=== PATIENT | male | born 1950 | race African-American/Black ===

== ENCOUNTER 2019-06-10 16:39 | Emergency (ER) | payer OTHER ==
[2019-06-10 17:07] VITALS: BP 150/95; PULSE 72; TEMP 97.7; BMI 25.1
--- NOTE | 2019-06-10 17:36 | PDOC ---
History of Present Illness - General Chief Complaint: Edema Stated Complaint: EDEMA Time Seen by Provider: 06/10/19 17:10 - History of Present Illness Initial Comments: 06/10/19 17:27 68 M with h/o HTN, ETOH abuse, presenting to ED with BLE swelling. Pt states that he has had about 4-5 days of BLE swelling. Denies any pain. Denies any redness or fevers. Denies CP/SOB. Denies recent travel/immobilization. Pt states he has had intermittent swelling of his legs that comes and goes. It usually resolves with elevation of his legs, but this time it has not. Pt also reports swelling of his L hand that is chronic and unchanged. Pt is only on amlodipine for HTN. No other meds. Is currently admitted to [facility] for ETOH detox. Past History - Past Medical History Allergies/Adverse Reactions: Allergies Allergy/AdvReac Type Severity Reaction Status Date / Time Penicillins Allergy Severe Difficulty Verified 06/10/19 17:05 Breathing Home Medications: Ambulatory Orders Amlodipine Besylate [Norvasc -] 10 mg PO DAILY 06/10/19 Anemia: No Asthma: No Cancer: No Cardiac Disorders: No CVA: No COPD: No CHF: No Dementia: No Diabetes: No GI Disorders: No Disorders: No HTN: Yes Hypercholesterolemia: No Liver Disease: No Seizures: Yes (last seizure in ) Thyroid Disease: No - Surgical History Abdominal Surgery: No Appendectomy: No Cardiac Surgery: No Cholecystectomy: No Neurologic Surgery: No Orthopedic Surgery: Yes - Psycho Social/Smoking Cessation Hx Smoking History: Never smoked Have you smoked in the past 12 months: No Information on smoking cessation initiated: No Hx Alcohol Use: No Drug/Substance Use Hx: No Substance Use Type: Alcohol, Heroin Review of Systems - Review of Systems Comments:: 06/10/19 17:36 "GENERAL/CONSTITUTIONAL: No fever or chills. No weakness. HEAD, EYES, EARS, NOSE AND THROAT: No change in vision. No ear pain or discharge. No sore throat. CARDIOVASCULAR: No chest pain, no shortness of breath, no loss of consciousness RESPIRATORY: No cough, wheezing, or hemoptysis. GASTROINTESTINAL: No nausea, vomiting, diarrhea or constipation. GENITOURINARY: No dysuria, frequency, or change in urination. MUSCULOSKELETAL: + BLE swelling, No neck or back pain. SKIN: No rash NEUROLOGIC: No vertigo, no change in strength/sensation. ENDOCRINE: No increased thirst. No abnormal weight change. HEMATOLOGIC/LYMPHATIC: No anemia, easy bleeding, or history of blood clots. ALLERGIC/IMMUNOLOGIC: No hives or skin allergy. *Physical Exam - Vital Signs Last Vital Signs Temp Pulse Resp BP Pulse Ox 97.7 F 72 16 150/95 92 L 06/10/19 16:40 06/10/19 16:40 06/10/19 16:40 06/10/19 16:40 06/10/19 16:40 - Physical Exam Comments: 06/10/19 17:37 "GENERAL: Awake, alert, and fully oriented, in no acute distress. HEAD: No signs of trauma EYES: PERRLA, EOMI, sclera anicteric, conjunctiva clear ENT: Auricles normal inspection, hearing grossly normal, nares patent, oropharynx clear without exudates. Moist mucosa NECK: Nontender, no stepoffs, Normal ROM, supple, no lymphadenopathy, JVD, or masses LUNGS: Breath sounds equal, clear to auscultation bilaterally. No wheezes, and no crackles HEART: Regular rate and rhythm, normal S1 and S2, no murmurs, rubs or gallops ABDOMEN: Soft, nontender, normoactive bowel sounds. No guarding, no rebound. No masses EXTREMITIES: + 1 BLE pitting edema, No clubbing or cyanosis. No cords, erythema , or tenderness NEUROLOGICAL: Cranial nerves II through XII intact. 5/5 strength and sensation in all extremities, Normal speech, normal gait, normal cerebellar function SKIN: Warm, Dry, normal turgor, no rashes or lesions noted ED Treatment Course - LABORATORY CBC & Chemistry Diagram: 06/10/19 18:23 06/10/19 18:23 - RADIOLOGY Radiology Studies Ordered: Category Date Time Status CHEST X-RAY PORTABLE* [RAD] Stat Radiology 06/10/19 17:20 Ordered Medical Decision Making - Medical Decision Making 06/10/19 17:37 68 M with BLE edema. Vitals notable for mild hypoxia 92%, but pt without any SOB or chest pain, no h/o CHF. Will evaluate for pulmonary edema with CXR. DVT unlikely as edema is symmetric and pt has no DVT risk factors. Will check liver and renal function with labs. - Labs, BNP - EKG - CXR Pt signed out to oncoming attending at 7PM, pending labs and re-evaluation Discharge - Discharge Information Problems reviewed: Yes Clinical Impression/Diagnosis: Foot swelling Condition: Stable Disposition: HOME - Follow up/Referral - Patient Discharge Instructions Patient Printed Discharge Instructions: DI for Peripheral Edema -- Bilateral Additional Instructions: Thank you for coming in to the ER today If you notice worsening or persistent swelling, please return to the ER Return to the ER for any other concerns or complaints - Post Discharge Activity
[2019-06-10 18:48] LABS: BASO % 1.7 % (0-2.0); EOS % 5.4 % (0-4.5); HEMOGLOBIN 12.8 GM/dL (11.7-16.9); LYMPH % 56.5 % (8-40); MCH 34.4 pg (25.7-33.7); MCHC 33.6 g/dl (32.0-35.9); MEAN CELL VOLUME 102.3 fl (80-96); MONO % 9.3 % (3.8-10.2); NEUT % 27.1 % (42.8-82.8); RBC 3.72 M/mm3 (4.00-5.60); RDW 13.2 % (11.9-15.9); WHITE BLOOD COUNT 4.6 K/mm3 (4.0-10.0)
[2019-06-10 19:17] LABS: ALBUMIN 3.6 g/dl (3.4-5.0); BILIRUBIN,TOTAL 0.5 mg/dL (0.2-1); BLOOD UREA NITROGEN 18.3 mg/dL (7-18); CALCIUM 8.5 mg/dL (8.5-10.1); CREATININE 1.3 mg/dL (0.55-1.3); N-TERMINAL BNP 80.2 pg/ml (5-125); POTASSIUM 4.3 mmol/L (3.5-5.1); TOT PROT 8.1 g/dl (6.4-8.2)
[2019-06-10 19:21] LABS: MEAN PLT VOLUME 9.5 fl (7.5-11.1)
[2019-06-10 19:22] LABS: PLATELET COUNT 168 K/MM3 (134-434)
--- NOTE | 2019-06-10 20:29 | PDOC ---
*Physical Exam - Vital Signs Last Vital Signs Temp Pulse Resp BP Pulse Ox 97.7 F 72 16 150/95 92 L 06/10/19 16:40 06/10/19 16:40 06/10/19 16:40 06/10/19 16:40 06/10/19 16:40 ED Treatment Course - LABORATORY CBC & Chemistry Diagram: 06/10/19 18:23 06/10/19 18:23 - ADDITIONAL ORDERS Additional order review: Laboratory Results 06/10/19 06/10/19 18:23 18:23 Sodium 138 Potassium 4.3 Chloride 105 Carbon Dioxide 25 Anion Gap 7 L BUN 18.3 H Creatinine 1.3 Est GFR (CKD-EPI)AfAm 64.98 Est GFR (CKD-EPI)NonAf 56.06 Random Glucose 63 L Calcium 8.5 Total Bilirubin 0.5 AST 113 H ALT 59 Alkaline Phosphatase 87 Creatine Kinase 267 Creatine Kinase Index 1.0 CK-MB (CK-2) 2.9 Troponin I < 0.02 B-Natriuretic Peptide 80.2 Total Protein 8.1 Albumin 3.6 06/10/19 18:23 RBC 3.72 L MCV 102.3 H MCHC 33.6 RDW 13.2 MPV 9.5 Neutrophils % 27.1 L Lymphocytes % 56.5 H Monocytes % 9.3 Eosinophils % 5.4 H Basophils % 1.7 Medical Decision Making - Medical Decision Making 06/10/19 20:23 I received this patient on sign out He is a 68 yo M who was sent to the ER from [facility] due to swelling of his feet Plan is to follow up labs Pt reports that he has had swelling of his feet intermittently for some time which improves with leg elevation Plan is not for duplex 06/10/19 20:24 Laboratory Tests 06/10/19 06/10/19 06/10/19 18:23 18:23 18:23 WBC 4.6 Hgb 12.8 Hct 38.0 Plt Count 168 BUN 18.3 H Creatinine 1.3 CK-MB (CK-2) 2.9 Troponin I < 0.02 B-Natriuretic Peptide 80.2 EKG: POOR BASELINE NSR rate of 70 bpm, axis nml, intervals abnormal - QTc: 533ms (prolonged), NJ: 176ms, QRS:84ms, no st elevation or depression, t waves upright Will transfer to [facility] Discharge - Discharge Information Problems reviewed: Yes Clinical Impression/Diagnosis: Foot swelling Condition: Stable Disposition: HOME - Admission No - Additional Discharge Information Prescription Drug Monitoring Program (I-STOP) results: I-STOP not reviewed - Follow up/Referral - Patient Discharge Instructions Patient Printed Discharge Instructions: DI for Peripheral Edema -- Bilateral Additional Instructions: Thank you for coming in to the ER today If you notice worsening or persistent swelling, please return to the ER Return to the ER for any other concerns or complaints - Post Discharge Activity
--- NOTE | 2019-06-11 14:58 | EKG ---
Test Reason : Blood Pressure : / mmHG Vent. Rate : 070 BPM Atrial Rate : 070 BPM P-R Int : 176 ms QRS Dur : 084 ms QT Int : 494 ms P-R-T Axes : 077 054 076 degrees QTc Int : 533 ms POOR DATA QUALITY, INTERPRETATION MAY BE ADVERSELY AFFECTED NORMAL SINUS RHYTHM SEPTAL INFARCT , AGE UNDETERMINED ABNORMAL ECG NO PREVIOUS ECGS AVAILABLE Confirmed by Kezia Garza ([id number]) on 06/11/2019 2:58:13 PM Referred By: Confirmed By:Kezia Garza
== END 2019-06-10 23:12 | disposition home or self-care (01) ==
LOC: JER 16:39
DX: R60.0 Localized edema (principal); I10 Essential (primary) hypertension; F10.10 Alcohol abuse, uncomplicated; Z88.0 Allergy status to penicillin
CPT/HCPCS: 36415; 71045-TC-FY; 80053; 82550; 82553; 83880; 84484; 85025; 93005; 93010; 99284-25

== ENCOUNTER 2019-06-10 23:32 | Inpatient (IN) | payer OTHER ==
[2019-06-10 12:01] VITALS: BMI 24.7
--- NOTE | 2019-06-10 14:00 | HP ---
CIWA Score Nausea/Vomitin-No Nausea/No Vomiting Muscle Tremors: 1-None Visible, but [place] Anxiety: 0-No Anxiety, at Ease Agitation: 0-Normal Activity Paroxysmal Sweats: No Perspiration Orientation: 0-Oriented Tacttile Disturbances: 0-None Auditory Disturbances: 0-None Visual Disturbances: 0-None Headache: 0-None Present CIWA-Ar Total Score: 1 - Admission Criteria OASAS Guidelines: Admission for Medically Managed Detox: Requires at least one of the followin. CIWA greater than 12 2. Seizures within the past 24 hours 3. Delirium tremens within the past 24 hours 4. Hallucinations within the past 24 hours 5. Acute intervention needed for co occurring medical disorder 6. Acute intervention needed for co occurring psychiatric disorder 7. Severe withdrawal that cannot be handled at a lower level of care (continued vomiting, continued diarrhea, abnormal vital signs) requiring intravenous medication and/or fluids 8. Admission ROS [facility] Chief Complaint: Wilmar Gomez is a 68 year old male presenting for alcohol detox. Allergies/Adverse Reactions: Allergies Allergy/AdvReac Type Severity Reaction Status Date / Time Penicillins Allergy Severe Difficulty Verified 06/10/19 17:05 Breathing History of Present Illness: Wilmar Gomez is a 68 year old male presenting for alcohol detox. Alcohol: 2 six packs and 6 nips. Daily drinker. Last drink was before arriving at this facility. States that has been drinking since his teens. has had a seizure prior (last seizure was in the ). Denies blackouts. Denies falls and head hits. Longest period of sobriety 6 months. Withdrawal symptoms: tremors , anxiety, vomiting. Referred by [facility]. took a benzo at home (?Librium), took off the street. 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 Has been to detox in the past. [facility] has been to rehab in the past. Plans after detox: wants some sort of rehab. Medical History: HTN, seizures, Hep C (treated), arthritis Surgical History: R knee replacement, 2 L hip replacements (revision) Psychiatric History: denies Smoking: former smoker, less than a pack per day Social: lives in a apartment, lives alone. Visits his sister. 2 children, keeps in contact with family. Utox: MTD, BZO CMAERON: 0.218 Will be sent to [facility] for further evaluation of leg edema and once medically cleared will return for alcohol detox. Spoke with Dr. Pickard for report. Exam Limitations: No Limitations - Ebola screening Have you traveled outside of the country in the last 21 days: No Have you had contact with anyone from an Ebola affected area: No Do you have a fever: No - Review of Systems Constitutional: No Symptoms Reported EENT: reports: No Symptoms Reported Respiratory: reports: No Symptoms reported Cardiac: reports: No Symptoms Reported GI: reports: No Symptoms Reported : reports: No Symptoms Reported Musculoskeletal: reports: Back Pain Integumentary: reports: No Symptoms Reported Neuro: reports: No Symptoms reported Endocrine: reports: No Symptoms Reported Hematology: reports: No Symptoms Reported Psychiatric: reports: Orientated x3 Patient History - Patient Medical History Hx Anemia: No Hx Asthma: No Hx Chronic Obstructive Pulmonary Disease (COPD): No Hx Cancer: No Hx Cardiac Disorders: No Hx Congestive Heart Failure: No Hx Hypertension: Yes Hx Hypercholesterolemia: No Hx Pacemaker: No HX Cerebrovascular Accident: No Hx Seizures: Yes (last seizure in ) Hx Dementia: No Hx Diabetes: No Hx Gastrointestinal Disorders: No Hx Liver Disease: No Hx Genitourinary Disorders: No Hx Sexually Transmitted Disorders: No Hx Renal Disease (ESRD): No Hx Thyroid Disease: No Hx Human Immunodeficiency Virus (HIV): No Hx Hepatitis C: Yes (treated) Hx Depression: No Hx Suicide Attempt: No Hx Bipolar Disorder: No Hx Schizophrenia: No - Patient Surgical History Hx Neurologic Surgery: No Hx Cataract Extraction: No Hx Cardiac Surgery: No Hx Breast Surgery: No Hx Breast Biopsy: No Hx Abdominal Surgery: No Hx Appendectomy: No Hx Cholecystectomy: No Hx Genitourinary Surgery: No Hx Section: No Hx Orthopedic Surgery: Yes - PPD History Previous Implant?: No PPD to be Administered?: Yes - Smoking Cessation Smoking history: Former smoker Have you smoked in the past 12 months: No Initiated information on smoking cessation: No - Substance & Tx. History Hx Alcohol Use: Yes Hx Substance Use: Yes Substance Use Type: Alcohol, Heroin - Substances abused Alcohol Substance route: Oral Frequency: Daily Amount used: (2 ) 6 pk of beer & 5 nips of liquor Age of first use: 13 Date of last use: 06/10/19 Admission Physical Exam [facility] - Vital Signs Vital Signs: Vital Signs - 24 hr 06/10/19 11:43 Temperature 98.9 F Pulse Rate 80 Respiratory 18 Rate Blood Pressure 161/97 - Physical General Appearance: Yes: No Apparent Distress, Disheveled HEENTM: Yes: EOMI, Normocephalic, Normal Voice, BIANKA, Pharynx Normal Respiratory: Yes: Chest Non-Tender, Lungs Clear, Normal Breath Sounds, No Respiratory Distress, No Accessory Muscle Use Neck: Yes: No masses,lesions,Nodules, Trachea in good position Breast: Yes: Breast Exam Deferred Cardiology: Yes: Regular Rhythm, Regular Rate, S1, S2 Abdominal: Yes: Normal Bowel Sounds, Non Tender, Flat, Soft Genitourinary: Yes: Within Normal Limits Back: Yes: Normal Inspection Musculoskeletal: Yes: full range of Motion, Back pain, Other (surgical scar on R knee old scars on L AC, from former IVDU) Extremities: Yes: Normal Capillary Refill, Normal Inspection, Normal Range of Motion, Non-Tender Neurological: Yes: cytogeneticist II-XII NML intact, Fully Oriented, Alert, Motor Strength 5/5, Normal Mood/Affect Integumentary: Yes: Normal Color, Dry, Warm, Pitting Edema (2+ edema in legs, up to the knees), Other - Diagnostic (1) HTN (hypertension) Current Visit: Yes Status: Acute (2) Alcohol abuse Current Visit: Yes Status: Acute (3) Methadone maintenance therapy patient Current Visit: Yes Status: Acute (4) History of seizures Current Visit: Yes Status: Acute (5) Hepatitis C Current Visit: Yes Status: Acute Cleared for Admission S - Detox or Rehab [facility] Level of Care: Medically Supervised Detox Regimen/Protocol: Librium Breathalyzer - Breathalyzer Breathalyzer: 0.218 Urine Drug Screen - Test Device Lot number: [id number] Expiration date: 01/28/21 - Control Is test valid?: Yes - Results Drug screen NEGATIVE: No Urine drug screen results: MTD-Methadone, BZO-Benzodiazepines Inpatient Rehab Admission - Rehab Decision to Admit Inpatient rehab admission?: No
--- NOTE | 2019-06-10 14:29 | PN ---
"Teaching Attending Note Name of Resident: Gaston Zhao ATTENDING PHYSICIAN STATEMENT I saw and evaluated the patient. I reviewed the resident's note and discussed the case with the resident. I agree with the resident's findings and plan as documented. SUBJECTIVE: 69 year old male presenting for alcohol detox , latest use today , denies blackouts , no falls while intoxicated , longest sobriety 6 months , referred by [facility] since 1990 , current daily dose 130 mg THB for the weekend . Pt reports 2 - week LE swelling . Alcohol: 2 six packs and 6 nips / day , first use in teens , w/d seizure . Medical History: HTN, seizures, Hep C (treated) Surgical History: R knee TKR 2 years ago , L hip THR x 2 ( revision / nail displacement ) Psychiatric History: denies Smoking: former smoker, less than a pack per day Social: lives in a apartment, lives alone. Utox: MTD, BZO ( reports illicit librium use ) CAMERON: 0.218 OBJECTIVE: wnwd , mild UE tremors R hand Ivth and Vth fingers F deformity ,reports remote injury R knee tkr scar c/d i YVETTE LE board-like edema to knees , indurated w/ hyperpigmentation and stasis dermatitis ABd : soft , distended , + hepatomegaly , no fluid wave CV RRR S1 S2 3/6 murmur R 2nd IC Resp : lungs CTA B/L , decreased BS Search Terms: ene register, 1950 Search Date: 06/10/2019 02:30:49 PM This report was requested by: Tiana Dexter | Reference #: [id number] There are no results for the search terms that you entered. Vital Signs - 24 hr 06/10/19 11:43 Temperature 98.9 F Pulse Rate 80 Respiratory 18 Rate Blood Pressure 161/97 ASSESSMENT AND PLAN: Alcohol dependence w/ intoxication LE pedal edema new onset - sent for eval at ED"
--- NOTE | 2019-06-10 23:37 | PN ---
[facility] Progress Note Note: Returned from ED. Discharge diagnosis fro ED: Peripheral Edema. [facility]HS H&P reviewed. Alert and oriented. Lungs CTA. Current CAMERON: 0.086 Hx: Alcohol use disorder. On methadone maintenance. PMHx: HTN CIWA Score Nausea/Vomitin-No Nausea/No Vomiting Muscle Tremors: 7-Gross tremors hands and body Anxiety: 1-No Anxiety, at Ease Agitation: 1-Normal Activity Paroxysmal Sweats: 3- Increased facial moisture CIWA-Ar Total Score: 12 Admit to detox. Orders written.
[2019-06-10] MEDS ORDERED: MAG HYDROX/AL HYDROX/SIMETH 30 ML UNIT-DOSE CUP PO PRN (23:43)
[2019-06-10] MEDS ORDERED: MAGNESIUM CITRATE 300 ML BOTTLE PO PRN (23:43)
[2019-06-10] MEDS ORDERED: PROCHLORPERAZINE MALEATE 5 MG TABLET PO PRN (23:43)
[2019-06-10] MEDS ORDERED: MENTHOL/PHENOL 1 EACH UD MM PRN (23:43)
[2019-06-10] MEDS ORDERED: IBUPROFEN 400 MG TABLET (FP) PO PRN (23:43)
[2019-06-10] MEDS ORDERED: MAGNESIUM HYDROX 2400MG/30ML ORAL SUSPENSION 30 ML CUP PO PRN (23:43)
[2019-06-10] MEDS ORDERED: BISMUTH SUBSALICYLATE 524 MG/30 ML UD PO PRN (23:43)
[2019-06-10] MEDS ORDERED: ACETAMINOPHEN 325 MG TABLET (FP) PO PRN ×2 (23:43)
[2019-06-10] MEDS ORDERED: METHOCARBAMOL 500 MG TABLET PO PRN (23:43)
[2019-06-11] MEDS ORDERED: chlordiazePOXIDE HCL 25 MG CAPSULE PO ONE (00:02)
[2019-06-11] MEDS: chlordiazePOXIDE HCL 25 MG CAPSULE PO SCH ×3 (05:26→21:28)
[2019-06-11] MEDS ORDERED: METHADONE HCL 10 MG TABLET PO SCH (06:00)
[2019-06-11] MEDS ORDERED: METHADONE HCL 10 MG TABLET ONE (07:00)
[2019-06-11] MEDS ORDERED: METHADONE HCL 40 MG DISPERSABLE TABLET ONE (07:01)
[2019-06-11] MEDS: METHADONE 120 MG, METHADONE 10 MG PO SCH (07:04)
[2019-06-11] MEDS: amLODIPine BESYLATE 10 MG TABLET (FP) PO SCH (10:11)
[2019-06-11] MEDS: PRENATAL VITAMINS W/ FOLIC ACID TABLET (FP) PO SCH (10:11)
[2019-06-11] MEDS: chlordiazePOXIDE HCL 10 MG CAPSULE PO PRN ×2 (11:04→19:03)
--- NOTE | 2019-06-11 13:12 | PN ---
S CIWA - CIWA Score Nausea/Vomitin-Mild Nausea/No Vomiting Muscle Tremors: 4-Moderate,w/Arms Extend Anxiety: 4-Mod. Anxious/Guarded Agitation: 4-Moderately Restless Paroxysmal Sweats: 3 Orientation: 0-Oriented Tacttile Disturbances: 0-None Auditory Disturbances: 0-None Visual Disturbances: 0-None Headache: 0-None Present CIWA-Ar Total Score: 16 B[facility] Progress Note (SOAP) Subjective: sweats shakes interrupted sleep body aches agitation Objective: 06/11/19 13:11 Vital Signs Temperature 98.1 F 06/11/19 09:22 Pulse Rate 87 06/11/19 09:22 Respiratory Rate 16 06/11/19 09:22 Blood Pressure 140/96 06/11/19 09:22 O2 Sat by Pulse Oximetry (%) Laboratory Tests 06/11/19 05:50 RPR Titer Nonreactive rest of labs pending aaox3 ambulating no acute distress Assessment: 06/11/19 13:12 withdrawal sx Plan: continue detox increase fluids
[2019-06-11] MEDS: THIAMINE HCL 100 MG TABLET (FP) PO SCH (21:28)
[2019-06-12] MEDS ORDERED: METHADONE HCL 10 MG TABLET ONE (03:01)
[2019-06-12] MEDS ORDERED: METHADONE HCL 40 MG DISPERSABLE TABLET ONE (03:01)
[2019-06-12] MEDS: chlordiazePOXIDE 5 MG CAPSULE PO SCH ×3 (06:21→21:50)
[2019-06-12] MEDS: METHADONE 120 MG, METHADONE 10 MG PO SCH (06:21)
[2019-06-12] MEDS: PRENATAL VITAMINS W/ FOLIC ACID TABLET (FP) PO SCH (10:21)
[2019-06-12] MEDS: amLODIPine BESYLATE 10 MG TABLET (FP) PO SCH (10:21)
--- NOTE | 2019-06-12 15:22 | PN ---
S CIWA - CIWA Score Nausea/Vomitin-Mild Nausea/No Vomiting Muscle Tremors: 3 Anxiety: 4-Mod. Anxious/Guarded Agitation: 3 Paroxysmal Sweats: 3 Orientation: 0-Oriented Tacttile Disturbances: 0-None Auditory Disturbances: 0-None Visual Disturbances: 0-None Headache: 0-None Present CIWA-Ar Total Score: 14 BHS Progress Note (SOAP) Subjective: Tremor, chills, interrupted sleep, no appetite (patient wants ensure) Objective: 06/12/19 15:20 Last Vital Signs Temp Pulse Resp BP Pulse Ox 99.5 F 98 H 16 144/90 06/12/19 13:20 06/12/19 13:20 06/12/19 13:20 06/12/19 13:20 Elevated b/p: has htn, on medication Laboratory Tests 06/11/19 05:50 RPR Titer Nonreactive Labs reviewed Assessment: 06/12/19 15:21 Withdrawal sxs Plan: Continue detox Encouraged PO water intake
[2019-06-12] MEDS: chlordiazePOXIDE HCL 10 MG CAPSULE PO PRN (18:43)
[2019-06-12] MEDS: MELATONIN 5 MG TABLETS PO PRN (22:09)
[2019-06-12] MEDS: THIAMINE HCL 100 MG TABLET (FP) PO SCH (22:10)
[2019-06-13] MEDS ORDERED: chlordiazePOXIDE HCL 10 MG CAPSULE PO PRN
[2019-06-13] MEDS ORDERED: METHADONE HCL 10 MG TABLET ONE (04:43)
[2019-06-13] MEDS ORDERED: METHADONE HCL 40 MG DISPERSABLE TABLET ONE (04:43)
[2019-06-13] MEDS: METHADONE 120 MG, METHADONE 10 MG PO SCH (05:26)
[2019-06-13] MEDS: chlordiazePOXIDE HCL 10 MG CAPSULE PO SCH ×3 (05:27→21:25)
[2019-06-13] MEDS: PRENATAL VITAMINS W/ FOLIC ACID TABLET (FP) PO SCH (10:14)
[2019-06-13] MEDS: amLODIPine BESYLATE 10 MG TABLET (FP) PO SCH (10:21)
--- NOTE | 2019-06-13 13:42 | PN ---
[facility] CIWA - CIWA Score Nausea/Vomitin-No Nausea/No Vomiting Muscle Tremors: 1-None Visible, but [place] Anxiety: 1-Mildly Anxious Agitation: 1-Slight > Activity Paroxysmal Sweats: No Perspiration Orientation: 0-Oriented Tacttile Disturbances: 0-None Auditory Disturbances: 0-None Visual Disturbances: 0-None Headache: 0-None Present CIWA-Ar Total Score: 3 BHS Progress Note (SOAP) Subjective: sweats Objective: 06/13/19 13:41 Vital Signs Temperature 97.9 F 06/13/19 13:08 Pulse Rate 87 06/13/19 13:08 Respiratory Rate 16 06/13/19 13:08 Blood Pressure 117/76 06/13/19 13:08 O2 Sat by Pulse Oximetry (%) aaox3 ambulating no acute distress Assessment: 06/13/19 13:41 mild withdrawals Plan: continue detox d/c in am
[2019-06-13] MEDS: THIAMINE HCL 100 MG TABLET (FP) PO SCH (21:25)
[2019-06-13] MEDS: MELATONIN 5 MG TABLETS PO PRN (21:25)
[2019-06-14] MEDS ORDERED: METHADONE HCL 40 MG DISPERSABLE TABLET ONE (04:01)
[2019-06-14] MEDS ORDERED: METHADONE HCL 10 MG TABLET ONE (04:01)
[2019-06-14] MEDS ORDERED: chlordiazePOXIDE HCL 10 MG CAPSULE PO ONE (05:00)
[2019-06-14] MEDS: METHADONE 120 MG, METHADONE 10 MG PO SCH (06:24)
[2019-06-14 09:25] VITALS: BP 103/73; PULSE 106; TEMP 97.5
--- NOTE | 2019-06-14 09:25 | DS ---
[facility] Detox Discharge Summary Admission Date: 06/10/19 Discharge Date: 06/14/19 - History Present History: Alcohol Dependence, MMTP - Physical Exam Results Vital Signs: Vital Signs Temperature 98.4 F 06/14/19 06:00 Pulse Rate 100 H 06/14/19 06:00 Respiratory Rate 20 06/14/19 06:00 Blood Pressure 90/68 06/14/19 06:00 O2 Sat by Pulse Oximetry (%) Pertinent Admission Physical Exam Findings: pt arrived in withdrawals Vital Signs Temperature 98.4 F 06/14/19 06:00 Pulse Rate 100 H 06/14/19 06:00 Respiratory Rate 20 06/14/19 06:00 Blood Pressure 90/68 06/14/19 06:00 O2 Sat by Pulse Oximetry (%) Laboratory Tests 06/11/19 05:50 RPR Titer Nonreactive aaox3 ambulating no acute distress - Treatment Hospital Course: Detox Protocol Followed, Detoxed Safely, Responded well, Discharged Condition Good, Rehab Referral Accepted Patient has Accepted a Rehab Referral to: pt declined rehab; referral provided - Medication Discharge Medications: Ambulatory Orders Amlodipine Besylate [Norvasc -] 10 mg PO DAILY 06/10/19 - Diagnosis (1) Alcohol abuse Current Visit: Yes Status: Chronic (2) HTN (hypertension) Current Visit: Yes Status: Chronic Qualifiers: Hypertension type: essential hypertension Qualified Code(s): I10 - Essential (primary) hypertension (3) Hepatitis C Current Visit: Yes Status: Chronic Qualifiers: Viral hepatitis chronicity: chronic Hepatic coma status: without hepatic coma Qualified Code(s): B18.2 - Chronic viral hepatitis C (4) History of seizures Current Visit: Yes Status: Acute (5) Methadone maintenance therapy patient Current Visit: Yes Status: Chronic - AMA Did Patient Leave Against Medical Advice: No
== END 2019-06-14 09:32 | disposition home or self-care (01) | DRG 897 ==
LOC: YASAS 23:32 → Y6N 23:33
PROVIDERS: ADMIT Allergy & Immunology; ATTEND Allergy & Immunology
PROC: HZ2ZZZZ Detoxification Services for Substance Abuse Treatment (ICD-10-PCS; principal; 2019-06-10)
DX: F10.230 Alcohol dependence with withdrawal, uncomplicated (principal); F11.20 Opioid dependence, uncomplicated; I10 Essential (primary) hypertension; B18.2 Chronic viral hepatitis C; R60.0 Localized edema; I87.2 Venous insufficiency (chronic) (peripheral); Z86.69 Personal history of other diseases of the nervous system and sense organs; Z96.651 Presence of right artificial knee joint; Z96.642 Presence of left artificial hip joint; Z88.0 Allergy status to penicillin
CPT/HCPCS: 36415; 86593

== ENCOUNTER 2021-02-12 16:36 | Inpatient (IN) | payer OTHER ==
[2021-02-12 18:35] VITALS: BMI 25.7
[2021-02-13] MEDS ORDERED: MAG HYDROX/AL HYDROX/SIMETH 30 ML UNIT-DOSE CUP PO PRN (00:08)
[2021-02-13] MEDS ORDERED: MENTHOL/PHENOL 1 EACH UD MM PRN (00:08)
[2021-02-13] MEDS ORDERED: NICOTINE POLACRILEX 2 MG GUM BUC PRN (00:08)
[2021-02-13] MEDS ORDERED: IBUPROFEN 400 MG TABLET (FP) PO PRN (00:08)
[2021-02-13] MEDS ORDERED: ACETAMINOPHEN 325 MG TABLET (FP) PO PRN ×2 (00:08)
[2021-02-13] MEDS ORDERED: MAGNESIUM CITRATE 300 ML BOTTLE PO PRN (00:08)
[2021-02-13] MEDS ORDERED: ONDANSETRON *ODT* 4 MG TABLET SL PRN (00:08)
[2021-02-13] MEDS ORDERED: MAGNESIUM HYDROX 2400MG/30ML ORAL SUSPENSION 30 ML CUP PO PRN (00:08)
[2021-02-13] MEDS ORDERED: BISMUTH SUBSALICYLATE 524 MG/30 ML PO PRN (00:08)
[2021-02-13] MEDS ORDERED: TRIMETHOBENZAMIDE HCL 200MG/2ML INJ IM ONE (02:03)
[2021-02-13] MEDS: METHOCARBAMOL 500 MG TABLET PO PRN (02:06)
[2021-02-13] MEDS: diazePAM 5 MG TABLET PO PRN ×3 (02:06→18:08)
[2021-02-13] MEDS: hydrOXYzine PAMOATE 25 MG CAPSULE (FP) PO SCH ×3 (05:46→14:38)
[2021-02-13] MEDS: PRENATAL VITAMINS W/ FOLIC ACID TABLET (FP) PO SCH (10:57)
[2021-02-13] MEDS: amLODIPine BESYLATE 10 MG TABLET (FP) PO SCH (10:58)
[2021-02-13 11:10] LABS: HEMATOCRIT 34.6 % (35.4-49); HEMOGLOBIN 11.1 GM/dL (11.7-16.9); MCH 30.7 pg (25.7-33.7); MCHC 32.2 g/dl (32.0-35.9); MEAN CELL VOLUME 95.5 fl (80-96); MEAN PLT VOLUME 9.8 fl (7.5-11.1); PLATELET COUNT 97 10^3/uL (134-434); RBC 3.63 M/mm3 (4.00-5.60); WHITE BLOOD COUNT 4.2 K/mm3 (4.0-10.0)
[2021-02-13] MEDS ORDERED: METHADONE HCL 10 MG TABLET PO SCH (11:15)
[2021-02-13 11:26] LABS: ALBUMIN 3.2 g/dl (3.4-5.0); BLOOD UREA NITROGEN 6.9 mg/dL (7-18); CALCIUM 8.2 mg/dL (8.5-10.1)
[2021-02-13 11:30] LABS: CREATININE 0.9 mg/dL (0.55-1.3)
[2021-02-13 11:31] LABS: BILIRUBIN,TOTAL 1.2 mg/dL (0.2-1); TOT PROT 7.8 g/dl (6.4-8.2)
[2021-02-13] MEDS ORDERED: METHADONE HCL 10 MG TABLET ONE (12:31)
[2021-02-13] MEDS: METHADONE 120 MG, METHADONE 10 MG PO SCH (12:31)
[2021-02-13] MEDS ORDERED: METHADONE HCL 40 MG DISPERSABLE TABLET ONE (12:31)
[2021-02-13] MEDS: diazePAM 5 MG TABLET PO SCH (22:31)
[2021-02-13] MEDS: MELATONIN 5 MG TABLETS PO SCH (22:31)
[2021-02-13] MEDS: THIAMINE HCL 100 MG TABLET (FP) PO SCH (22:31)
[2021-02-14] MEDS ORDERED: METHADONE HCL 10 MG TABLET ONE (04:18)
[2021-02-14] MEDS ORDERED: METHADONE HCL 40 MG DISPERSABLE TABLET ONE (04:19)
[2021-02-14] MEDS: diazePAM 5 MG TABLET PO SCH ×4 (05:39→22:55)
[2021-02-14] MEDS: METHADONE 120 MG, METHADONE 10 MG PO SCH (05:40)
[2021-02-14] MEDS: amLODIPine BESYLATE 10 MG TABLET (FP) PO SCH (11:15)
[2021-02-14] MEDS: hydrOXYzine PAMOATE 25 MG CAPSULE (FP) PO PRN (11:15)
[2021-02-14] MEDS: PRENATAL VITAMINS W/ FOLIC ACID TABLET (FP) PO SCH (11:16)
[2021-02-14] MEDS: THIAMINE HCL 100 MG TABLET (FP) PO SCH (22:55)
[2021-02-14] MEDS: MELATONIN 5 MG TABLETS PO SCH (22:55)
[2021-02-15] MEDS ORDERED: METHADONE HCL 40 MG DISPERSABLE TABLET ONE (03:49)
[2021-02-15] MEDS ORDERED: METHADONE HCL 10 MG TABLET ONE (03:49)
[2021-02-15] MEDS: METHADONE 120 MG, METHADONE 10 MG PO SCH (06:01)
[2021-02-15] MEDS: diazePAM 5 MG TABLET PO SCH ×3 (06:02→23:03)
[2021-02-15] MEDS: PRENATAL VITAMINS W/ FOLIC ACID TABLET (FP) PO SCH (09:42)
[2021-02-15] MEDS: hydrOXYzine PAMOATE 25 MG CAPSULE (FP) PO PRN ×2 (09:42→23:03)
[2021-02-15] MEDS: amLODIPine BESYLATE 10 MG TABLET (FP) PO SCH (09:42)
[2021-02-15] MEDS: METHOCARBAMOL 500 MG TABLET PO PRN (09:42)
[2021-02-15] MEDS: MELATONIN 5 MG TABLETS PO SCH (23:03)
[2021-02-15] MEDS: THIAMINE HCL 100 MG TABLET (FP) PO SCH (23:04)
[2021-02-16] MEDS ORDERED: METHADONE HCL 10 MG TABLET ONE (04:28)
[2021-02-16] MEDS ORDERED: METHADONE HCL 40 MG DISPERSABLE TABLET ONE (04:28)
[2021-02-16] MEDS: diazePAM 5 MG TABLET PO SCH ×2 (05:09→17:32)
[2021-02-16] MEDS: METHADONE 120 MG, METHADONE 10 MG PO SCH (05:09)
[2021-02-16] MEDS: hydrOXYzine PAMOATE 25 MG CAPSULE (FP) PO PRN ×2 (05:12→10:58)
[2021-02-16] MEDS: METHOCARBAMOL 500 MG TABLET PO PRN (10:58)
[2021-02-16] MEDS: PRENATAL VITAMINS W/ FOLIC ACID TABLET (FP) PO SCH (10:59)
[2021-02-16] MEDS: amLODIPine BESYLATE 10 MG TABLET (FP) PO SCH (10:59)
[2021-02-16] MEDS: MELATONIN 5 MG TABLETS PO SCH (22:23)
[2021-02-16] MEDS: THIAMINE HCL 100 MG TABLET (FP) PO SCH (22:23)
[2021-02-17] MEDS ORDERED: METHADONE HCL 10 MG TABLET ONE (04:20)
[2021-02-17] MEDS ORDERED: METHADONE HCL 40 MG DISPERSABLE TABLET ONE (04:20)
[2021-02-17] MEDS: METHADONE 120 MG, METHADONE 10 MG PO SCH (05:40)
[2021-02-17] MEDS: hydrOXYzine PAMOATE 25 MG CAPSULE (FP) PO PRN (05:40)
[2021-02-17] MEDS ORDERED: diazePAM 5 MG TABLET PO ONE (06:00)
[2021-02-17 09:07] VITALS: BP 144/91; PULSE 75; TEMP 96.8
[2021-02-17] MEDS: amLODIPine BESYLATE 10 MG TABLET (FP) PO SCH (10:31)
[2021-02-17] MEDS: PRENATAL VITAMINS W/ FOLIC ACID TABLET (FP) PO SCH (10:31)
== END 2021-02-17 10:35 | disposition home or self-care (01) | DRG 897 ==
LOC: YASAS 16:36 → Y3N 02-13 00:18
PROVIDERS: ADMIT Allergy & Immunology; ATTEND Allergy & Immunology
PROC: HZ2ZZZZ Detoxification Services for Substance Abuse Treatment (ICD-10-PCS; principal; 2021-02-13)
DX: F10.230 Alcohol dependence with withdrawal, uncomplicated (principal); F11.20 Opioid dependence, uncomplicated; I10 Essential (primary) hypertension; B18.2 Chronic viral hepatitis C; Z96.659 Presence of unspecified artificial knee joint; Z96.649 Presence of unspecified artificial hip joint; Z99.89 Dependence on other enabling machines and devices; Z88.0 Allergy status to penicillin
CPT/HCPCS: 36415; 80053; 80185; 85027; 86780; C9803; Q0162; U0003; U0005